=== PATIENT | female | born 1955 | race Caucasian/White ===

== ENCOUNTER → 2016-06-04 | Outpatient (CLI) | payer MEDICARE, BC ==
[~2016-06-04] VITALS: Ht 160 cm; Wt 106.6 kg
[~2016-06-04] MED LIST: ALBU2.5V5 NEB; ASCO-78 PO; BREO ELLIPTA 11 EACH IH; CHOL500016 PO; CHOL500050 PO; CRAN500C2 PO; CRAN500C6 PO; DEXA4TAB PO; FLUT1DIS IH; INSU100I11 SQ; INSU100V31 SQ; INSU100V8 SQ; INSU300I SQ; INSULIN ASPART 100 UNIT/ML 10ML VIAL. SQ SCH; LIDOCAINE 1% / SOD BICARB 8.4% 20 ML VIAL. IJ ONE; LORA0.5T96 PO; MEPE100T14 PO; MEPE50TA2 PO; METF10002 PO; METH1VIA2 IJ; METH25VI27 SQ; NYST1000 PO; NYST5000 PO; ONDA8TAB9 PO; PRED20TA PO; PROAIR HFA8.5 GM INH; PROAIR RESPICL90 MCG IH; PROC10TA57 PO; SITA25TA PO; SPIR25TA3 PO; SPIR50TA2 PO; TRAM50TA PO; TRAMADOL 50 MG TABLET. PO PRN; TRAZ100T12 PO; VENL150C PO; VENL37.5 PO; WARF5TAB7 PO; WARF7.5T PO; ZINC50TA29 PO; ZOLP12.52 PO
[2016-06-04 10:00] VITALS: BP 132/76
--- NOTE | 2016-06-04 10:58 | PDOC1 ---
History and Physical Date of Procedure Date of Admission Dexter Procedure Procedure Sono/fluoro guided Power Picc insertion Indication Indication 60 YO female with recurrent ling cancer. XRT compete. Picc requested for ChemoTx. Past Medical History Past Medical History See Nursing Pre Procedure PMH Past Surgical History Past Surgical History See Nursing Pre procedure PSH Current Medications Current Medications Current Medications Insulin Aspart (Novolog Vial) 26 unit TIDAC SQ ; Start 06/04/16 at 11:30; Status Cancel Tramadol HCl (Ultram) 50 mg QIDPRN PRN PO PAIN; Start 06/04/16 at 09:15; Status Cancel Lidocaine/Sodium Bicarbonate 20 ml 20 ml STK-MED ONCE IJ ; Start 06/04/16 at 10: 07; Stop 06/04/16 at 10:08; Status DC Heparin Sodium/ Sodium Chloride 500 ml @ As Directed STK-MED ONCE .ROUTE ; Start 06/04/16 at 10:07; Stop 06/04/16 at 10:08; Status DC Heparin Sodium/ Sodium Chloride 60 unit 1X ONCE IV Last administered on t 10:45; Start 06/04/16 at 10:45; Stop 06/04/16 at 10:46; Status DC Lidocaine/Sodium Bicarbonate (Buffered Lidocaine 1%) 3 ml 1X ONCE IJ Last administered on 06/04/16t 10:45; Start 06/04/16 at 10:45; Stop 06/04/16 at 10:46 ; Status DC Active Scripts Active Reported Ambien Cr (Zolpidem Tartrate) 12.5 Mg Tab.mphase 1 Tab PO QHS Tramadol Hcl 50 Mg Tablet 1 Tab PO PRN Q6HRS Spironolactone 50 Mg Tablet 1 Tab PO QID Demerol (Meperidine Hcl) 100 Mg Tablet 50-100 Mg PO QHS PRN Humalog (Insulin Lispro) 100 Unit/1 Ml Insuln.pen 26 Unit SQ TIDAC Toujeo Solostar (Insulin Glargine,Hum.rec.anlog) 300 Unit/1 Ml Insuln.pen 50 Unit SQ HS Cranberry (Cranberry Extract) 500 Mg Capsule 500 Mg PO DAILY Vitamin D3 (Cholecalciferol (Vitamin D3)) 5,000 Unit Tablet 5,000 Unit PO QODAY Zinc 50 Mg Tablet 50 Mg PO DAILY Trazodone Hcl 100 Mg Tablet 1 Tab PO QHS Compazine (Prochlorperazine Maleate) 10 Mg Tablet 10 Mg PO Q6HRS PRN Prednisone 20 Mg Tablet 2 Tab PO DAILY PRN Zofran (Ondansetron Hcl) 8 Mg Tablet 0.5 Tab PO Q6HRS PRN Nystatin 500,000 Unit Tablet 1 Tab PO QID PRN Ativan (Lorazepam) 0.5 Mg Tablet 0.5 Mg PO BID PRN Dexamethasone 4 Mg Tablet 3 Tab PO PRN evening before and morning of chemo treatment Vitamin C (Ascorbate Calcium) 500 Mg Tablet 500 Mg PO DAILY Albuterol Sulfate Neb Soln (Albuterol Sulfate) 2.5 Mg/3 Ml Vial.neb 1 Vial NEB Q6HRS Proair Hfa Inhaler (Albuterol Sulfate) 8.5 Gm Hfa.aer.ad 2 Puff INH PRN Q6HRS PRN Demerol (Meperidine Hcl) 50 Mg Tablet 50-100 Mg PO QHS Toujeo Solostar (Insulin Glargine,Hum.rec.anlog) 300 Unit/1 Ml Insuln.pen 50 Unit SQ HS Coumadin (Warfarin Sodium) 7.5 Mg Tablet 1 Tab PO DAILY takes Saturday and Saturday only Warfarin Sodium 5 Mg Tablet 1 Tab PO DAILY Saturday through Saturday Allergies Allergies: Coded Allergies: Penicillins (Unverified Allergy, Intermediate, 06/11/14) Sulfa (Sulfonamide Antibiotics) (Unverified Allergy, Intermediate, 06/11/14 ) codeine (Unverified Allergy, Intermediate, 06/11/14) latex (Unverified Allergy, Intermediate, 06/11/14) Physical Exam Vital Signs Vital Signs Date Time Temp Pulse Resp B/P Pulse Ox O2 Delivery O2 Flow Rate FiO2 06/04/16 10:00 Room Air 06/04/16 10:00 99.3 98 18 132/76 92 99.3 Assessment Assessment Recurrent Lung cancer. Picc requested for chemotx. Problems: Plan Plan Sono/fluoro guided Power Picc insertion in CARLEY CARR MD Jun 04, 2016 10:58
--- NOTE | 2016-06-04 11:03 | PDOC ---
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 XRT complete. Picc insertion requested for chemotx. Post-Procedure Diagnosis Post-Procedure Diagnosis Same Procedure Performed Procedure Performed Sono/fluoro guided Power Picc insertion Type of Anesthesia Type of Anesthesia Local Estimated Blood Loss EBL: Minimal Drain/Tubes Drains/Tubes Rt basilic vein 5F 2L 47cm Power Picc Condition of Patient Condition of Patient Stable. No apparent complication. Disposition Disposition Home from [facility], if no problems. F/u with Dr Manrique. OK to use Power Picc. Full report to follow. CARLEY OROZCO MD Jun 04, 2016 11:03
--- NOTE | 2016-06-04 16:14 | RAD ---
Ultrasound and fluoro guided power PICC placement Indication: 60-year-old female with recurrent lung cancer. She is status post XRT. Power PICC insertion has been requested for adjuvant chemotherapy. Fluoro time: 0.8 minute Kerma-Area Product: 4 Gycm2 Anesthesia: Local only Sterility: All elements of maximal sterile barrier technique were utilized, including cap, mask, sterile gown, sterile gloves, large sterile sheet, appropriate hand hygiene, and 2% chlorhexidine for cutaneous antisepsis Procedure: Informed consent was obtained from the patient. She was placed supine on the angiography table. Preliminary ultrasound examination of right upper arm revealed wide patency of right basilic vein, which was documented with a hard copy ultrasound image. Right upper arm was then prepped and draped in the usual sterile fashion, utilizing all elements of maximal sterile barrier technique, as described above. Using aseptic technique, local anesthesia, direct ultrasound guidance, and the micropuncture system, successful percutaneous entry was achieved into right basilic vein at the level of distal humerus. A 5 Thai dual lumen power PICC was trimmed to 47 cm in length, was inserted through a 5 Thai peel-away sheath, and was easily advanced centrally under fluoroscopic control. Tip of the power PICC was positioned at upper right atrium. This was documented with a single fluoroscopic spot image. The PICC was then demonstrated to flush and aspirate normally, and was secured at the skin exit site utilizing suture and sterile dressing. The patient tolerated the procedure well without apparent complication. Impression: Successful, uneventful ultrasound and fluoro guided placement of right basilic vein 5 Thai dual-lumen 47 cm power PICC, as described.
== END | disposition home or self-care (01) ==
LOC: INTRAD 09:03
PROVIDERS: ATTEND Internal Medicine Hematology & Oncology
DX: C34.90 Malignant neoplasm of unspecified part of unspecified bronchus or lung (principal); J44.9 Chronic obstructive pulmonary disease, unspecified; J45.909 Unspecified asthma, uncomplicated; E11.9 Type 2 diabetes mellitus without complications; F32.9 Major depressive disorder, single episode, unspecified; M19.90 Unspecified osteoarthritis, unspecified site
CPT/HCPCS: 36569; 76937; 77001; C1751; C1892

== ENCOUNTER → 2016-12-20 | Outpatient (CLI) | payer MEDICARE, BC ==
[2016-06-04 10:00] VITALS: BP 132/76
[~2016-12-20] MED LIST changes: -INSULIN ASPART 100 UNIT/ML 10ML VIAL. SQ SCH; -LIDOCAINE 1% / SOD BICARB 8.4% 20 ML VIAL. IJ ONE; +METF-620 PO; -METF10002 PO; -NYST1000 PO; +NYST100054 PO; -TRAMADOL 50 MG TABLET. PO PRN; -WARF7.5T PO; +WARF7.5T48 PO
--- NOTE | 2016-12-21 12:57 | RAD ---
DATE: 12/20/2016 EXAM: MAMMO JOSH SCREENING BILATERAL HISTORY: Routine screening COMPARISON: 04/19/2014 The breast parenchyma shows scattered fibroglandular densities. Breast parenchyma level B. FINDINGS: 2-D and 3-D tomosynthesis imaging was performed in CC and MLO projections. No new or enlarging breast densities are seen. Scattered benign type calcifications are again noted. No suspicious microcalcifications have developed. IMPRESSION: Stable mammograms without evidence of malignancy. BI-RADS CATEGORY: 2 BENIGN FINDING(S) RECOMMENDED FOLLOW-UP: 12M 12 MONTH FOLLOW-UP PQRS compliance statement: Patient information was entered into a reminder system with a target due date for the next mammogram. Mammography is a sensitive method for finding small breast cancers, but it does not detect them all and is not a substitute for careful clinical examination. A negative mammogram does not negate a clinically suspicious finding and should not result in delay in biopsying a clinically suspicious abnormality. "Our facility is accredited by the [employer] Mammography Program."
== END | disposition home or self-care (01) ==
LOC: KCIC MAMMO 15:39
PROVIDERS: ATTEND Physician Assistant Surgical
DX: Z12.31 Encounter for screening mammogram for malignant neoplasm of breast (principal)
CPT/HCPCS: 77063; G0202; 77067

== ENCOUNTER 2017-03-31 16:24 | Emergency (ER) | payer MEDICARE, BC ==
[~2017-03-31] VITALS: Ht 160 cm; Wt 104.9 kg
[2017-03-31 17:45] LABS: BASO # 0.1 x10^3/uL (0.0-0.2); BASO % 1 % (0-3); EOS % 1 % (0-3); HEMATOCRIT 44.7 % (36.0-47.0); HEMOGLOBIN 14.6 g/dL (12.0-15.5); LYMPH # 0.9 x10^3/uL (1.0-4.8); LYMPH % 10 % (24-48); MEAN CORPUSCULAR HEMOGLOBIN 30 pg (25-35); MEAN CORPUSCULAR HGB CONC 33 g/dL (31-37); MEAN CORPUSCULAR VOLUME 93 fL (79-100); MONO % 2 % (0-9); NEUT % 87 % (31-73); PLATELET COUNT 301 x10^3/uL (140-400); RED BLOOD COUNT 4.83 x10^6/uL (3.50-5.40); RED CELL DISTRIBUTION WIDTH 17.7 % (11.5-14.5); WHITE BLOOD COUNT 8.8 x10^3/uL (4.0-11.0)
[2017-03-31] MEDS ORDERED: IPRATRPIUM/ALBUTEROL 0.5/2.5MG 3 ML NEBU. NEB ONE (17:45)
[2017-03-31 17:56] LABS: INR 1.7 (0.8-1.1); PROTHROMBIN TIME PATIENT 19.3 SEC (11.7-14.0)
[2017-03-31 17:57] LABS: CALCIUM 9.1 mg/dL (8.5-10.1); CREATININE 1.1 mg/dL (0.6-1.0); GFR 50.2; POTASSIUM 4.3 mmol/L (3.5-5.1)
[2017-03-31 18:00] LABS: % EOS 2 % (0-5)
[2017-03-31 18:02] LABS: ANISOCYTOSIS SLIGHT; PLT ESTIMATE ADEQUATE (ADEQUATE)
[2017-03-31 18:04] LABS: ALBUMIN 3.6 g/dL (3.4-5.0); ALBUMIN/GLOBULIN RATIO 1.2 (1.0-1.7); MAGNESIUM 1.6 mg/dL (1.8-2.4); TOTAL BILIRUBIN 0.3 mg/dL (0.2-1.0); TOTAL PROTEIN 6.6 g/dL (6.4-8.2)
[2017-03-31 18:13] LABS: CKMB MASS 3.8 ng/mL (0.0-3.6)
[2017-03-31 19:15] VITALS: BP 128/64
--- NOTE | 2017-03-31 19:25 | PHYS DOC ---
Past Medical History Past Medical History: Anxiety, Cancer, Diabetes-Type II, Other Additional Past Medical Histor: POLYTHYCEMIA, RIGHT LUNG CA Past Surgical History: Appendectomy, Cancer Surgery, Cholecystectomy, Hysterectomy Additional Past Surgical Histo: unknown Alcohol Use: None Drug Use: None Adult General Chief Complaint Chief Complaint: CHEST PAIN HPI HPI Patient is a 61 year old female who comes to the ED with a complaint of cough, shortness of air. Both of her jaws were hurting in both of her arms were hurting. She has pain in the center of her chest. Her breathing felt labored. The patient states she was recently seen in the office with wheezing and chest congestion and right ear pain. She was started on Ceftin near and she got "explosive diarrhea". A couple days later they called her and said that her cardiac enzymes were elevated and they wanted her to be seen in the ED. That was yesterday, she didn't feel like coming in yesterday but decided to come in today. The patient has a history of "chest cancer". She has not had any radiation or chemotherapy for quite some time. The patient states "I'm a DNR, and I'm not going to take any more medications". The patient in 10 used to smoke about 5 cigarettes a day. Patient has a history of polycythemia vera and has had therapeutic phlebotomy in the past. She takes methotrexate injections for psoriatic arthritis. She denies history of an OK. PCP Dr. nolan Review of Systems Review of Systems Constitutional: Denies fever or chills [] HENT: Denies nasal congestion or sore throat [] Respiratory: As in history of present illness Cardiovascular: As in history of present illness GI: Denies abdominal pain, nausea, vomiting, bloody stools or diarrhea [] : Denies dysuria or hematuria [] Musculoskeletal: Denies back pain or joint pain [] Integument: She has a small psoriasis plaque on her right wrist Current Medications Current Medications Current Medications Medications (Trade) Dose Ordered Sig/Sayra Start Time Stop Time Status Last Admin Dose Admin Albuterol/ Ipratropium (Duoneb) 3 ml 1X ONCE 03/31/17 17:45 03/31/17 17:46 DC 03/31/17 17:52 3 ML Allergies Allergies Allergies Coded Allergies Type Severity Reaction Last Updated Verified Penicillins Allergy Intermediate 06/11/14 No Sulfa (Sulfonamide Antibiotics) Allergy Intermediate 06/11/14 No codeine Allergy Intermediate 06/11/14 No latex Allergy Intermediate 06/11/14 No Physical Exam Physical Exam Constitutional: Well developed, well nourished, no acute distress, non-toxic appearance. []Alert, mentating normally, warm and dry. HENT: Normocephalic, atraumatic, bilateral external ears normal, nose normal. [ ] Eyes: conjunctiva normal, no discharge. [] Neck: Normal range of motion, no stridor. [] Cardiovascular:Heart rate regular rhythm, no murmur [] Lungs & Thorax: Bilateral breath sounds present, prolonged expiratory phase, expiratory wheezes present throughout Abdomen: Bowel sounds normal, soft, no tenderness, no masses, no pulsatile masses. [] Skin: Warm, dry, no erythema, no rash. [] Back: No tenderness, no CVA tenderness. [] Extremities: No tenderness, no cyanosis, no clubbing, ROM intact, no edema. [] Neurologic: Alert and oriented X 3, normal motor function, no focal deficits noted. [] Current Patient Data Vital Signs Vital Signs Date Time Temp Pulse Resp B/P (MAP) Pulse Ox O2 Delivery O2 Flow Rate FiO2 03/31/17 19:15 96 128/64 (85) 97 Room Air 03/31/17 16:26 98.3 35 98.3 Lab Values Laboratory Tests Test 03/31/17 17:15 03/31/17 18:57 White Blood Count 8.8 x10^3/uL (4.0-11.0) Red Blood Count 4.83 x10^6/uL (3.50-5.40) Hemoglobin 14.6 g/dL (12.0-15.5) Hematocrit 44.7 % (36.0-47.0) Mean Corpuscular Volume 93 fL (79-100) Mean Corpuscular Hemoglobin 30 pg (25-35) Mean Corpuscular Hemoglobin Concent 33 g/dL (31-37) Red Cell Distribution Width 17.7 % (11.5-14.5) H Platelet Count 301 x10^3/uL (140-400) Neutrophils (%) (Auto) 87 % (31-73) H Lymphocytes (%) (Auto) 10 % (24-48) L Monocytes (%) (Auto) 2 % (0-9) Eosinophils (%) (Auto) 1 % (0-3) Basophils (%) (Auto) 1 % (0-3) Neutrophils # (Auto) 7.7 x10^3uL (1.8-7.7) Lymphocytes # (Auto) 0.9 x10^3/uL (1.0-4.8) L Monocytes # (Auto) 0.1 x10^3/uL (0.0-1.1) Eosinophils # (Auto) 0.1 x10^3/uL (0.0-0.7) Basophils # (Auto) 0.1 x10^3/uL (0.0-0.2) Segmented Neutrophils % 86 % (35-66) H Band Neutrophils % 4 % (0-9) Lymphocytes % 8 % (24-48) L Eosinophils % 2 % (0-5) Platelet Estimate Adequate (ADEQUATE) Anisocytosis Slight Prothrombin Time 19.3 SEC (11.7-14.0) H Prothrombin Time INR 1.7 (0.8-1.1) H Sodium Level 138 mmol/L (136-145) Potassium Level 4.3 mmol/L (3.5-5.1) Chloride Level 100 mmol/L (98-107) Carbon Dioxide Level 26 mmol/L (21-32) Anion Gap 12 (6-14) Blood Urea Nitrogen 10 mg/dL (7-20) Creatinine 1.1 mg/dL (0.6-1.0) H Estimated GFR (Cockcroft-Gault) 50.2 BUN/Creatinine Ratio 9 (6-20) Glucose Level 179 mg/dL (70-99) H Calcium Level 9.1 mg/dL (8.5-10.1) Magnesium Level 1.6 mg/dL (1.8-2.4) L Total Bilirubin 0.3 mg/dL (0.2-1.0) Aspartate Amino Transferase (AST) 27 U/L (15-37) Alanine Aminotransferase (ALT) 32 U/L (14-59) Alkaline Phosphatase 71 U/L (46-116) Creatine Kinase 109 U/L (26-192) Creatine Kinase MB (Mass) 3.8 ng/mL (0.0-3.6) H Creatine Kinase MB Relative Index 3.5 % (0-4) Troponin I Quantitative < 0.017 ng/mL (0.000-0.055) TO-Soe-X-Type Natriuretic Peptide 96 pg/mL (0-124) Total Protein 6.6 g/dL (6.4-8.2) Albumin 3.6 g/dL (3.4-5.0) Albumin/Globulin Ratio 1.2 (1.0-1.7) Glucose (Fingerstick) 136 mg/dL (70-99) H Laboratory Tests 03/31/17 17:15 Laboratory Tests 03/31/17 17:15 EKG EKG Twelve-lead EKG read by me. Sinus rhythm. Heart rate 92. There are no acute ST or T wave changes indicative of ischemia or infarction. No STEMI. 1703[] Radiology/Procedures Radiology/Procedures One view portable chest x-ray read by me. No acute findings. She does have old right upper lobe scar that appears unchanged.[] Course & Med Decision Making Course & Med Decision Making Pertinent Labs and Imaging studies reviewed. (See chart for details) 61-year-old female presents to the ED with cough, short of air, also complaining of mid chest pain, both of her jaws hurting in both arms hurting. The symptoms are now improved. EKG does not show acute abnormality at this time. I advised the patient I would like to get a chest x-ray and some labs, she is agreeable to that. She is wheezing quite a bit and has not had a breathing treatment today, we will give her a DuoNeb. Labs unremarkable for acute findings. I rechecked the patient. She has had something to eat and is feeling much better after her DuoNeb. I recommended to the patient that she be admitted to the hospital for serial enzymes, further observation and evaluation. The patient is quite adamant that she does not want to be admitted to the hospital. She reiterates that she is a DNR, she does not want to take anymore medication, she believes she might any time anyway. She would really rather go home. She does have a nebulizer at home and medication for that, she feels comfortable giving herself breathing treatments. I had a nice conversation with the patient that I ask her to sign out AGAINST MEDICAL ADVICE and she was agreeable to do so since I am advising her to stay. I advised her to return if symptoms worsen or if she changes her mind at any time. Patient's is at the bedside and agreeable to the plan as well. [] Dragon Disclaimer Dragon Disclaimer This electronic medical record was generated, in whole or in part, using a voice recognition dictation system. Departure Departure Impression: Primary Impression: Chest pain Additional Impression: COPD exacerbation Disposition: AGAINST MEDICAL ADVICE Condition: IMPROVED Referrals: JULEE NOLAN MD (PCP) Patient Instructions: Chest Pain (Nonspecific), Smoking, You Can Quit, Easy-to- Read Additional Instructions: As we discussed, I recommend that you take a breathing treatment every 4 hours while awake until you are feeling better. Our advice will always be to try to quit smoking which will be better for your lungs. Make a follow-up appointment with your primary care doctor and with a technology infusion specialist, if you decide to. Return to ED if your symptoms change or you change your mind or new symptoms develop. Problem Qualifiers KAYLYN JOHNSON MD Mar 31, 2017 19:25
--- NOTE | 2017-04-01 06:09 | EKG ---
[facility] [address] [place] [id number] Test Date: 2017-03-31 Test Time: 17:03:52 Pat Name: COURTNEY CONDE Department: Room: Gender: F Washer Carcass: : 1955 Requested By: KAYLYN JOHNSON Order Number: [id number] Reading MD: Measurements Intervals Moffit Rate: 92 P: 36 CT: 144 QRS: 36 QRSD: 88 T: 36 QT: 348 QTc: 435 Interpretive Statements SINUS RHYTHM LOW LIMB LEAD VOLTAGE QRS(T) CONTOUR ABNORMALITY CONSISTENT WITH ANTEROSEPTAL INFARCT AGE UNDETERMINED ABNORMAL ECG No previous ECG available for comparison
--- NOTE | 2017-04-01 07:39 | RAD ---
Chest x-ray Indication: Chest pain Technique: Portable AP upright chest x-ray Comparison: Multiple previous chest x-rays, the most recent from 11/01/2016 Findings: Heart is normal in size. Loss of right lung volume with stable horizontally oriented opacity extending from the right hilum to the lung periphery. No pneumothorax or pleural effusion. Left lung is clear. Visualized bony thorax is within normal limits. Spinal fusion changes noted in the lower cervical spine. Impression: Stable opacity in the right upper lung zone may represent post therapeutic changes. Recurrent mass or pneumonia not ruled out.
== END 2017-03-31 19:45 | disposition left against medical advice (07) ==
LOC: ER 16:24
DX: J44.1 Chronic obstructive pulmonary disease with (acute) exacerbation (principal); R07.89 Other chest pain; E11.9 Type 2 diabetes mellitus without complications; Z90.49 Acquired absence of other specified parts of digestive tract; Z90.710 Acquired absence of both cervix and uterus; L40.50 Arthropathic psoriasis, unspecified; Z88.0 Allergy status to penicillin; Z88.2 Allergy status to sulfonamides; Z88.5 Allergy status to narcotic agent; Z91.040 Latex allergy status; Z87.891 Personal history of nicotine dependence; Z85.118 Personal history of other malignant neoplasm of bronchus and lung; Z79.899 Other long term (current) drug therapy
CPT/HCPCS: 36415; 71010; 80053; 82553; 82962; 83735; 83880; 84484; 85025; 85610; 93005; 94640; 99285; J7620; 85007

== ENCOUNTER → 2017-08-05 | Outpatient (CLI) | payer MEDICARE, BC | END | disposition home or self-care (01) | LOC: US 10:12 | DX: K76.0 Fatty (change of) liver, not elsewhere classified (principal); E11.22 Type 2 diabetes mellitus with diabetic chronic kidney disease; N18.2 Chronic kidney disease, stage 2 (mild); J44.9 Chronic obstructive pulmonary disease, unspecified; Z90.49 Acquired absence of other specified parts of digestive tract; Z87.891 Personal history of nicotine dependence | CPT/HCPCS: 76700 ==